=== PATIENT | male | born 1955 | race Caucasian/White ===

== ENCOUNTER → 2018-01-05 | Outpatient (CLI) | payer OTHER ==
[~2018-01-05] VITALS: Ht 175.3 cm; Wt 95.2 kg
[~2018-01-05] MED LIST: ADULT LOW DOSE81 M1 PO; ALPRAZOLAM0.5 MG PO; AMBIEN10 MG PO; APRESOLINE10 MG PO; APRESOLINE100 MG PO; ASCOMP WITH CO1 EACH PO; ASPIRIN325 MG PO; AVALIDE 150/1 TABLET PO; AVAPRO150 MG PO; AZITHROMYCIN250 MG PO; Aspirin Chewable PO; BREO ELLIPTA 21 EACH IH; CARVEDILOL6.25 MG PO; CLOPIDOGREL75 MG PO; Cipro PO; Cozaar PO; EFFIENT10 MG PO; ELAVIL25 MG PO; Effient PO; FUROSEMIDE40 MG PO; Habitrol,Nicoderm CQ TD; KENALOG,ARISTOC80 GM TP; LOPRESSOR25 MG PO; LOPRESSOR50 MG PO; LOSARTAN POTASS25 MG PO; Lopressor PO; MOTRIN IB200 MG PO; NITROSTAT0.4 MG SL; Niacin PO; Nitrostat,NitroQuick SL; PLAVIX75 MG PO; Pravachol PO; REPATHA SY140 MG/1 M SC; TEMOVATE 0.05%30 GM TP; TYLENOL EXTRA500 MG PO; VENTOLIN HFA18 GM IH; VIAGRA100 MG PO; predniSONE PO
== END | disposition home or self-care (01) ==
LOC: AMB 10:42
PROC: 0DBN8ZX Excision of Sigmoid Colon, Via Natural or Artificial Opening Endoscopic, Diagnostic (ICD-10-PCS; principal; 2018-01-05)
PROC: 0DBP8ZX Excision of Rectum, Via Natural or Artificial Opening Endoscopic, Diagnostic (ICD-10-PCS; principal; 2018-01-05)
PROC: 0DBL8ZX Excision of Transverse Colon, Via Natural or Artificial Opening Endoscopic, Diagnostic (ICD-10-PCS; principal; 2018-01-05)
PROC: 0DBM8ZX Excision of Descending Colon, Via Natural or Artificial Opening Endoscopic, Diagnostic (ICD-10-PCS; principal; 2018-01-05)
DX: Z12.11 Encounter for screening for malignant neoplasm of colon (principal); D12.3 Benign neoplasm of transverse colon; D12.4 Benign neoplasm of descending colon; D12.5 Benign neoplasm of sigmoid colon; K62.1 Rectal polyp; K63.5 Polyp of colon; K57.30 Diverticulosis of large intestine without perforation or abscess without bleeding; K64.8 Other hemorrhoids; F41.9 Anxiety disorder, unspecified; Z95.810 Presence of automatic (implantable) cardiac defibrillator; I25.10 Atherosclerotic heart disease of native coronary artery without angina pectoris; Z95.5 Presence of coronary angioplasty implant and graft; J44.9 Chronic obstructive pulmonary disease, unspecified; I11.0 Hypertensive heart disease with heart failure; I50.9 Heart failure, unspecified; E78.5 Hyperlipidemia, unspecified; N28.9 Disorder of kidney and ureter, unspecified; I73.9 Peripheral vascular disease, unspecified; Z82.49 Family history of ischemic heart disease and other diseases of the circulatory system; Z80.3 Family history of malignant neoplasm of breast; Z80.8 Family history of malignant neoplasm of other organs or systems; Z80.7 Family history of other malignant neoplasms of lymphoid, hematopoietic and related tissues; Z87.891 Personal history of nicotine dependence; Z88.8 Allergy status to other drugs, medicaments and biological substances
CPT/HCPCS: 88305